=== PATIENT | male | born 1995 | race Caucasian/White ===

== ENCOUNTER 2019-11-20 23:43 | Emergency (ER) | payer BC ==
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
== END 2019-11-21 01:17 ==
LOC: MW.ED 23:43
DX: R45.1 Restlessness and agitation (principal)
CPT/HCPCS: 99281; 99284